=== PATIENT | female | born 1975 | race Caucasian/White ===

== ENCOUNTER 2019-01-02 16:10 | Emergency (ER) | payer MEDICAID ==
[~2019-01-02] VITALS: Ht 154.9 cm; Wt 50.5 kg
[2019-01-02 16:14] VITALS: Ht 154.9 cm; Wt 50.5 kg
--- NOTE | 2019-01-02 17:15 | ERD ---
ER Documentation Chief Complaint Chief Complaint LUQ PAIN X 4 WEEKS HPI The patient is a 43-year-old female, presenting to the ER because of intermittent left upper quadrant for the last 4 weeks, worse with movement, denies fever, chills, neck pain, chest pain, dyspnea, vomiting, dysuria, complains of constipation. She does not smoke nor drink Past medical history/surgical history: None ROS All systems reviewed and are negative except as per history of present illness. Medications Home Meds Active Scripts Ibuprofen* (Motrin*) 600 Mg Tab, 600 MG PO Q6H PRN for PAIN AND OR ELEVATED TEMP, #20 TAB Prov:ANTOINE GANDARA MD 01/02/19 Allergies Allergies: Coded Allergies: No Known Allergy (Unverified , 01/02/19) Physical Exam Vitals Vital Signs Date Temp Pulse Resp B/P (MAP) Pulse Ox O2 O2 Flow FiO2 Time Delivery Rate 01/02/19 98.2 70 18 99/68 (78) 100 Room Air 20:34 01/02/19 66 16 92/65 (74) 100 Room Air 18:48 01/02/19 77 17 100/77 100 Room Air 17:41 (85) 01/02/19 98.9 80 19 112/67 99 16:14 (82) Physical Exam Const: No acute distress. Head: Atraumatic. Eyes: Normal Conjunctiva. ENT: Normal External Ears, Nose and Mouth. Neck: Full range of motion. No meningismus. Resp: Clear to auscultation bilaterally. Cardio: Regular rate and rhythm. Abd: Soft, non distended, normal bowel sounds, non tender. Left upper quadrant/ left CVA mild tenderness. No RLQ tenderness/ RUQ/ epigastric tenderness Skin: No petechiae or rashes. Back: No midline or flank tenderness. Ext: No cyanosis, or edema. Neur: Awake and alert. No focal deficit Psych: Normal Mood and Affect. Result Diagram: 01/02/19 1723 01/02/19 1723 Results 24 hrs Laboratory Tests Test 01/02/19 17:23 01/02/19 17:42 White Blood Count 10.6 10^3/ul Red Blood Count 4.67 10^6/ul Hemoglobin 14.3 g/dl Hematocrit 43.7 % Mean Corpuscular Volume 93.6 fl Mean Corpuscular Hemoglobin 30.6 pg Mean Corpuscular Hemoglobin Concent 32.7 g/dl Red Cell Distribution Width 12.6 % Platelet Count 334 10^3/UL Mean Platelet Volume 9.8 fl Immature Granulocytes % 0.300 % Neutrophils % 68.8 % Lymphocytes % 20.9 % Monocytes % 8.5 % Eosinophils % 1.0 % Basophils % 0.5 % Nucleated Red Blood Cells % 0.0 /100WBC Immature Granulocytes # 0.030 10^3/ul Neutrophils # 7.3 10^3/ul Lymphocytes # 2.2 10^3/ul Monocytes # 0.9 10^3/ul Eosinophils # 0.1 10^3/ul Basophils # 0.1 10^3/ul Nucleated Red Blood Cells # 0.0 10^3/ul Urine Color STRAW Urine Clarity CLEAR Urine pH 6.0 Urine Specific [place] 1.018 Urine Ketones NEGATIVE mg/dL Urine Nitrite NEGATIVE mg/dL Urine Bilirubin NEGATIVE mg/dL Urine Urobilinogen NEGATIVE mg/dL Urine Leukocyte Esterase NEGATIVE Wojciech/ul Urine Microscopic RBC 2 /HPF Urine Microscopic WBC 1 /HPF Urine Squamous Epithelial Cells FEW /HPF Urine Hemoglobin 1+ mg/dL Urine Glucose NEGATIVE mg/dL Urine Total Protein NEGATIVE mg/dl Sodium Level 144 mmol/L Potassium Level 4.0 mmol/L Chloride Level 108 mmol/L Carbon Dioxide Level 26 mmol/L Anion Gap 10 Blood Urea Nitrogen 17 mg/dl Creatinine 0.58 mg/dl Est Glomerular Filtrat Rate mL/min > 60 mL/min Glucose Level 68 mg/dl Calcium Level 9.8 mg/dl Total Bilirubin 0.2 mg/dl Direct Bilirubin 0.00 mg/dl Indirect Bilirubin 0.2 mg/dl Aspartate Amino Transf (AST/SGOT) 19 IU/L Alanine Aminotransferase (ALT/SGPT) 13 IU/L Alkaline Phosphatase 96 IU/L Total Protein 8.7 g/dl Albumin 4.7 g/dl Globulin 4.00 g/dl Albumin/Globulin Ratio 1.17 Lipase 66 U/L POC Beta HCG, Qualitative NEGATIVE Current Medications Medications Dose Sig/Crispin Start Time Status Last (Trade) Ordered Route PRN Stop Time Admin Dose Reason Admin Ketorolac 30 mg ONCE STAT 01/02/19 DC 01/02/19 Tromethamine IV 17:28 01/02/19 17:54 (Toradol) 17:29 Procedures/MDM MEDICAL MAKING DECISION: The patient is a 43-year-old female, presenting with acute abdominal pain, acute hematuria, most likely due to recently passed stones versus renal colic. She was treated with Toradol 30 mg IV for pain, is above outpatient follow-up. The differential diagnoses considered include but are not limited to cholelithiasis, cholecystitis, choledocholithiasis, cholangitis, pancreatitis, hepatitis, gastritis, peptic ulcer disease, gastric ulcer, appendicitis, c ystitis, diverticulitis, partial small bowel obstruction. Departure Diagnosis: Primary Impression: Abdominal pain Condition: Good Comments She was discharged with Motrin I discussed the findings with the patient. I advised the patient to follow-up with the primary physician in about 2-3 days, sooner if needed and return if any concern. Disclaimer: Inadvertent spelling and grammatical errors are likely due to EHR/dictation software use and do not reflect on the overall quality of patient care. Also, please note that the electronic time recorded on this note does not necessarily reflect the actual time of the patient encounter. ANTOINE GANDARA MD January 02, 2019 17:15
[2019-01-02] MEDS ORDERED: KETOROLAC 30 MG INJ IV STA (17:28)
[2019-01-02] MEDS ORDERED: IBUP-1542 PO (20:08)
[2019-01-02 20:34] VITALS: BP 99/68; PULSE 70; RESP 18
== END 2019-01-02 20:38 | disposition home or self-care (01) ==
LOC: E/R 16:10
DX: R10.12 Left upper quadrant pain (principal)
CPT/HCPCS: 36415; 71045; 80053; 81001; 81025; 83690; 85025; 96374; J1885; Z7502